=== PATIENT | male | born 1990 | race Caucasian/White ===

== ENCOUNTER 2018-12-03 10:30 | Outpatient (CLI) | payer OTHER ==
[2018-12-03 11:19] LABS: #Basophils 0.1 thou/uL (0.0-0.2); #Eosinphils 0.4 thou/uL (0.0-0.7); #Lymphocytes 3.6 thou/uL (1.20-3.40); #Monocytes 0.8 thou/uL (0.11-0.59); #Neutrophils 3.7 thou/uL (1.40-6.50); %Basophils 1.3 % (0.0-1.0); %Eosinophils 4.1 % (0.0-10.0); %Lymphocytes 42.1 % (21.0-51.0); %Monocytes 9.6 % (0.0-10.0); %Neutrophils 42.9 % (42.0-75.0); Hemoglobin 16.8 g/dL (14.0-18.0); Mean Corpuscular HGB CONC 33.5 g/dL (32.0-36.0); Mean Corpuscular Hemoglobin 28.4 pg (27.0-31.0); Mean Corpuscular Volume 84.8 fL (78.0-98.0); Mean Platelet Volume 8.1 fL (7.4-10.4); Platelet Count 231 thou/uL (130-400); RBC Distribution Width 11.9 % (11.5-14.5); Red Blood Cell (RBC) Count 5.91 mill/uL (4.70-6.10); White Blood Cell (WBC) Count 8.5 thou/uL (4.8-10.8)
[2018-12-03 11:40] LABS: ALT (SGPT) 108 U/L (8-55); AST (SGOT) 49 U/L (5-34); Albumin 4.8 g/dL (3.5-5.0); Alkaline Phosphatase 50 U/L (40-150); Anion Gap 15 mmol/L (10-20); BUN (Urea Nitrogen) 15 mg/dL (8.9-20.6); Bilirubin, Total 1.3 mg/dL (0.2-1.2); Calc. Creatinine Clearance 0 mL/min (70-130); Calcium 10.3 mg/dL (7.8-10.44); Carbon Dioxide 27 mmol/L (22-29); Chloride 103 mmol/L (98-107); Estimated GFR-MDRD 85; Glucose 94 mg/dL (70-105); Potassium 3.9 mmol/L (3.5-5.1); Protein, Total 7.8 g/dL (6.0-8.3); Sodium 141 mmol/L (136-145)
--- NOTE | 2018-12-03 12:19 | RAD ---
LUMBAR SPINE THREE VIEWS: HISTORY: Lumbar pain. COMPARISON: None. FINDINGS: Five lumbar type vertebral bodies. Lumbar spine vertebral body height is maintained. No fracture. Mild loss of disk space height at the thoracolumbar junction. Mild loss of disk space height at L5-S 1. Minimal retrolisthesis of L5 upon S1. IMPRESSION: Mild degenerative changes. POS: C
[2018-12-03 17:33] LABS: Hemoglobin A1c 4.4 % (4.0-6.0)
== END 2018-12-03 10:31 | disposition home or self-care (01) ==
LOC: NAV RAD 10:30 → EEVIPCON 10:30 → NAV RAD 10:31
PROVIDERS: ATTEND Family Medicine
DX: M54.5 Low back pain (principal); M47.816 Spondylosis without myelopathy or radiculopathy, lumbar region
CPT/HCPCS: 36415; 72100; 80053; 83036; 85025